=== PATIENT | male | born 1940 | race Caucasian/White ===

== ENCOUNTER 2023-10-03 08:17 | Outpatient (CLI) | payer MEDICARE | END 2023-10-03 08:18 | disposition home or self-care (01) | LOC: CSHRAD 08:17 | PROVIDERS: ATTEND Urology | DX: N20.0 Calculus of kidney (principal); R31.0 Gross hematuria; I71.43 Infrarenal abdominal aortic aneurysm, without rupture | CPT/HCPCS: 74178; 82565 ==